=== PATIENT | female | born 1985 | race Caucasian/White ===

== ENCOUNTER 2019-07-31 15:39 | Emergency (ER) | payer OTHER ==
[2019-07-31] MEDS ORDERED: KEFLEX500 M1 PO ×3 (16:22→16:42)
[2019-07-31] MEDS ORDERED: BACTROBAN TOP ×3 (16:22→16:42)
[2019-07-31 16:30] VITALS: BP 124/94
== END 2019-07-31 16:46 | disposition home or self-care (01) ==
LOC: ED 15:39
DX: L01.00 Impetigo, unspecified (principal)

== ENCOUNTER 2022-01-08 20:04 | Emergency (ER) | payer MEDICAID ==
[~2022-01-08] VITALS: Ht 165.1 cm; Wt 57.0 kg
[~2022-01-08 20:04] MED LIST: BACTROBAN TOP; KEFLEX500 M1 PO
[2022-01-08] MEDS ORDERED: PAXLOVID PO (23:32)
[2022-01-09 00:15] VITALS: BP 137/95
== END 2022-01-09 00:10 | disposition home or self-care (01) ==
LOC: ED 20:04
DX: U07.1 COVID-19 (principal); M79.10 Myalgia, unspecified site; F32.A Depression, unspecified